=== PATIENT | female | born 1950 | race African-American/Black ===

== ENCOUNTER 2021-10-04 19:16 | Emergency (ER) | payer BC ==
[~2021-10-04] VITALS: Ht 162.6 cm; Wt 51.7 kg
[2021-10-04 19:22] VITALS: BP 153/74
[2021-10-04 20:26] LABS: BASOPHILS % (AUTO) 0.8 % (0.0-2.0); EOSINOPHILS % (AUTO) 0.1 % (0.0-4.0); LYMPHOCYTES # (AUTO) 0.4 K/uL (2.5-16.5); LYMPHOCYTES % (AUTO) 12.3 % (20.5-51.1); MEAN CORPUSCULAR HEMOGLOBIN 27 pg (27-31); MEAN CORPUSCULAR HGB CONC 33 g/dL (33-37); MONOCYTES # (AUTO) 0.2 K/uL (0.8-1.0); MONOCYTES % (AUTO) 6.1 % (1.7-9.3); NEUTROPHILS # (AUTO) 2.7 K/uL (1.8-7.7); NEUTROPHILS % (AUTO) 80.7 % (42.2-75.2); PLATELET COUNT (AUTO) 187 K/uL (140-450); RED BLOOD CELL COUNT(AUTO) 4.44 MIL/uL (4.20-5.40); RED CELL DISTRIBUTION WIDTH 17.2 % (11.6-13.7); WHITE BLOOD COUNT (AUTO) 3.4 K/uL (4.8-10.8)
[2021-10-04 20:48] LABS: ALBUMIN 4.3 g/dL (3.4-5.0); ANION GAP 15.1 (8-16); CARBON DIOXIDE 27.5 mmol/L (21-32); CREATININE 0.8 mg/dL (0.6-1.3); POTASSIUM 3.6 mmol/L (3.5-5.1); TOTAL BILIRUBIN 0.4 mg/dL (0.0-1.0)
[2021-10-04] MEDS: ONDANSETRON 4 MG/2 ML VIAL IVP ONE (21:07)
[2021-10-04] MEDS: NACL 0.9% 1,000 ML IV ONE (21:08)
[2021-10-04 22:01] LABS: APPEARANCE,URINE CLEAR (CLEAR); BILIRUBIN,URINE NEGATIVE (NEGATIVE); BLOOD, URINE TRACE-I (NEGATIVE); LEUKOCYTE ESTERASE ,URINE NEGATIVE (NEGATIVE); NITRITE, URINE NEGATIVE (NEGATIVE); PH,URINE 6.5 (5.0-9.0); UGLUCOSE 3+ (NEGATIVE)
[2021-10-04 22:02] LABS: COLOR,URINE STRAW (YELLOW)
[2021-10-04 22:13] LABS: RBC,URINE 0-5 /HPF (0-5)
[2021-10-04 22:14] LABS: URINE AMORPHOUS URATE 4+ /HPF (None Seen); WBC,URINE 0-5 /HPF (0-5)
[2021-10-04] MEDS ORDERED: PIOG45TA10 PO (22:56)
[2021-10-04] MEDS ORDERED: ATOR20TA PO (22:56)
[2021-10-04] MEDS ORDERED: GLIM2TAB PO (22:56)
[2021-10-04] MEDS ORDERED: LISI5TAB18 PO (22:56)
[2021-10-04] MEDS ORDERED: [UNRECOGNIZED DRUG - CODE] PO (22:56)
[2021-10-04] MEDS ORDERED: ALPR1TAB2 PO (22:56)
[2021-10-04] MEDS ORDERED: ASPI-1856 PO (22:56)
[2021-10-04] MEDS ORDERED: METF-1022 PO (22:56)
[2021-10-05 05:04] VITALS: BP 151/70
== END 2021-10-05 05:03 | disposition short-term general hospital (02) ==
LOC: MED 19:16
DX: R11.2 Nausea with vomiting, unspecified (principal); E87.1 Hypo-osmolality and hyponatremia; I21.4 Non-ST elevation (NSTEMI) myocardial infarction; Z20.822 Contact with and (suspected) exposure to COVID-19
CPT/HCPCS: 36415; 71045; 74177; 80053; 81001; 83690; 84484; 85025; 87086; 87426; 93005; 96361; 96374; 99285; J2405; J7030; Q9967

== ENCOUNTER 2022-08-18 23:10 | Emergency (ER) | payer BC ==
[~2022-08-18] VITALS: Ht 162.6 cm; Wt 54.4 kg
[~2022-08-18 23:10] MED LIST: ALPR1TAB2 PO; ASPI-1856 PO; ATOR20TA PO; GLIM2TAB PO; LISI5TAB18 PO; METF-1253 PO; PIOG45TA10 PO; [UNRECOGNIZED DRUG - CODE] PO
[2022-08-19 00:26] VITALS: BP 172/80
--- NOTE | 2022-08-19 00:45 | NUR ---
PT TAKEN TO BED 12
--- NOTE | 2022-08-19 01:00 | NUR ---
ER physician at bedside assessing patient. Patient lying in bed, Awake, chest rise and fall symmetrical, no s/s of distress, daughter at bedside.
--- NOTE | 2022-08-19 01:01 | NUR ---
Patient to CT
[2022-08-19] MEDS ORDERED: HYDROmorphone PFS 2 MG/ML SYR IVP ONE (01:15)
[2022-08-19] MEDS ORDERED: KETOROLAC 30 MG/ML VIAL IVP ONE (01:15)
--- NOTE | 2022-08-19 01:15 | NUR ---
Patient back from CT. Patient lying in bed, Awake, chest rise and fall symmetrical, no s/s of distress, daughter at bedside.
[2022-08-19 01:31] LABS: BASOPHILS % (AUTO) 0.1 % (0.0-2.0); EOSINOPHILS % (AUTO) 0.8 % (0.0-4.0); HEMATOCRIT 29.6 % (36-48); HEMOGLOBIN 10.1 g/dL (12.0-16.0); LYMPHOCYTES # (AUTO) 0.1 K/uL (2.5-16.5); LYMPHOCYTES % (AUTO) 6.6 % (20.5-51.1); MEAN CORPUSCULAR HEMOGLOBIN 30 pg (27-31); MEAN CORPUSCULAR HGB CONC 34 g/dL (33-37); MEAN CORPUSCULAR VOLUME 88.3 fL (80-94); MONOCYTES # (AUTO) 0.2 K/uL (0.8-1.0); MONOCYTES % (AUTO) 18.4 % (1.7-9.3); NEUTROPHILS # (AUTO) 0.9 K/uL (1.8-7.7); NEUTROPHILS % (AUTO) 74.1 % (42.2-75.2); PLATELET COUNT (AUTO) 129 K/uL (140-450); RED BLOOD CELL COUNT(AUTO) 3.35 MIL/uL (4.20-5.40); RED CELL DISTRIBUTION WIDTH 15.5 % (11.6-13.7)
[2022-08-19 01:34] LABS: WHITE BLOOD COUNT (AUTO) 1.2 K/uL (4.8-10.8)
[2022-08-19 01:50] LABS: ALBUMIN 3.2 g/dL (3.4-5.0); ANION GAP 10.8 (8-16); ASPARTATE AMINOTRANSFERASE 22 U/L (15-37); CARBON DIOXIDE 31.3 mmol/L (21-32); CHLORIDE 96 mmol/L (98-107); CREATININE 0.9 mg/dL (0.6-1.3); GFR ARICAN-AMERICAN 80 mL/min (>90); GLUCOSE 229 mg/dL (74-106); POTASSIUM 4.1 mmol/L (3.5-5.1); SODIUM SERUM 134 mmol/L (136-145); TOTAL BILIRUBIN 0.3 mg/dL (0.0-1.0); UREA NITROGEN, BLOOD 17 mg/dL (7-18)
--- NOTE | 2022-08-19 02:00 | NUR ---
Patient lying in bed, Awake, chest rise and fall symmetrical, no s/s of distress, daughter at bedside.
--- NOTE | 2022-08-19 03:00 | NUR ---
Patient lying in bed, Awake, chest rise and fall symmetrical, no s/s of distress, daughter at bedside.
--- NOTE | 2022-08-19 04:10 | NUR ---
Patient lying in bed, Awake, chest rise and fall symmetrical, no s/s of distress, daughter at bedside.
--- NOTE | 2022-08-19 05:05 | NUR ---
Patient lying in bed, Awake, chest rise and fall symmetrical, no s/s of distress, daughter at bedside.
--- NOTE | 2022-08-19 06:00 | NUR ---
Patient lying in bed, Awake, chest rise and fall symmetrical, no s/s of distress, daughter at bedside.
[2022-08-19 06:10] VITALS: BP 127/85
--- NOTE | 2022-08-19 06:26 | NUR ---
Patient discharged with v/s stable. Written and verbal after care instructions given and explained. Patient verbalized understanding. Ambulatory with steady gait. All questions addressed prior to discharge. Advised to follow up with PMD.
== END 2022-08-19 06:26 | disposition home or self-care (01) ==
LOC: MED 23:10
DX: M25.511 Pain in right shoulder (principal); I10 Essential (primary) hypertension; E11.9 Type 2 diabetes mellitus without complications; Z79.4 Long term (current) use of insulin; Z79.899 Other long term (current) drug therapy; Z98.890 Other specified postprocedural states
CPT/HCPCS: 36415; 70450; 71275; 72125; 80053; 82948; 84484; 85025; 93005; 96374; 96375; 99285; J1170; J1885; Q9967

== ENCOUNTER 2022-09-27 10:13 | Inpatient (IN) | payer BC ==
[~2022-09-27] VITALS: Ht 167.6 cm; Wt 65.1 kg
--- NOTE | 2022-09-27 | NUR ---
PT CALLED DAUGHTER TO TELL NURSE SHE NEED TO USE THE BED GRANT . DAUGHTER SAID PT NEEDED TO BE CLEANED UP. WHEN I PREPARED TO CLEAN THE PATIENT SHE SAID NO GRANT. I REALIZED SHE NEEDED THE BEDPAN. SHE VOIDED 600 CC CLEAR YELLOW URINE
--- NOTE | 2022-09-27 10:14 | NUR ---
pt placed in ed 09 by amr
[2022-09-27 10:16] VITALS: BP 131/57
--- NOTE | 2022-09-27 10:30 | NUR ---
RECEIVED PT FROM [facility] C/C SOB 75% RA. ARRIVES ON 4L NC SATURATION 94%. PT SPEAKING IN FULL SENTENCES, HX OF LUNG CA LAST CHEMO 2 DAYS AGO. PT STATES WORSENING SOB WITH MOVEMENT AND AMBULATION. NSR ON MONITOR.
--- NOTE | 2022-09-27 10:45 | NUR ---
pt bib als run from home c/o sob x2 days. pt gcs 15. 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 pt on 4l saturation 94%. hx of lung ca last chemo 2 days ago.
[2022-09-27 11:00] LABS: BASOPHILS % (AUTO) 0.2 % (0.0-2.0); HEMATOCRIT 22.9 % (36-48); HEMOGLOBIN 7.6 g/dL (12.0-16.0); LYMPHOCYTES # (AUTO) 0.2 K/uL (2.5-16.5); LYMPHOCYTES % (AUTO) 2.4 % (20.5-51.1); MEAN CORPUSCULAR HEMOGLOBIN 31 pg (27-31); MEAN CORPUSCULAR HGB CONC 33 g/dL (33-37); MEAN CORPUSCULAR VOLUME 92.7 fL (80-94); MONOCYTES # (AUTO) 0.3 K/uL (0.8-1.0); MONOCYTES % (AUTO) 3.6 % (1.7-9.3); NEUTROPHILS # (AUTO) 6.7 K/uL (1.8-7.7); NEUTROPHILS % (AUTO) 93.8 % (42.2-75.2); PLATELET COUNT (AUTO) 327 K/uL (140-450); RED BLOOD CELL COUNT(AUTO) 2.47 MIL/uL (4.20-5.40); RED CELL DISTRIBUTION WIDTH 19.3 % (11.6-13.7); WHITE BLOOD COUNT (AUTO) 7.2 K/uL (4.8-10.8)
[2022-09-27 11:42] LABS: ALBUMIN 2.3 g/dL (3.4-5.0); ANION GAP 11.7 (8-16); ASPARTATE AMINOTRANSFERASE 20 U/L (15-37); CARBON DIOXIDE 28.8 mmol/L (21-32); CHLORIDE 99 mmol/L (98-107); CREATININE 0.9 mg/dL (0.6-1.3); GFR ARICAN-AMERICAN 80 mL/min (>90); GLUCOSE 250 mg/dL (74-106); POTASSIUM 3.5 mmol/L (3.5-5.1); SODIUM SERUM 136 mmol/L (136-145); TOTAL BILIRUBIN 0.3 mg/dL (0.0-1.0); UREA NITROGEN, BLOOD 26 mg/dL (7-18)
[2022-09-27] MEDS ORDERED: LEVOFLOXACIN 500 MG/D5W PREMIX 100 ML IV ONE (12:20)
--- NOTE | 2022-09-27 12:42 | NUR ---
PT BROUGHT BACK FROM CT VIA [facility]
[2022-09-27] MEDS ORDERED: FLUO-402 PO (13:16)
[2022-09-27] MEDS ORDERED: PRIM50TA21 PO (13:16)
[2022-09-27] MEDS ORDERED: METF-352 PO (13:16)
[2022-09-27] MEDS ORDERED: AMLO-3 PO (13:16)
[2022-09-27] MEDS ORDERED: CLOP75TA55 PO (13:16)
[2022-09-27] MEDS ORDERED: [UNRECOGNIZED DRUG - CODE] PO (13:16)
[2022-09-27] MEDS ORDERED: HYDR2TAB46 PO (13:16)
[2022-09-27] MEDS ORDERED: TRAZ-466 PO (13:16)
[2022-09-27] MEDS ORDERED: METFORMIN HCL PO SCH (13:30)
[2022-09-27] MEDS ORDERED: traZODone 50 MG TAB PO PRN (13:30)
[2022-09-27] MEDS: amLODIPine 5 MG TAB PO SCH (13:30)
[2022-09-27] MEDS ORDERED: CLOPIDOGREL 75 MG TAB PO SCH (13:30)
[2022-09-27] MEDS ORDERED: ALPRAZolam 0.5 MG TAB PO PRN (13:30)
[2022-09-27] MEDS ORDERED: DOCUSATE SOD/SENNA 50/8.6 MG 1 TAB PO PRN (13:30)
[2022-09-27] MEDS ORDERED: HYDROmorphone 2 MG TAB PO PRN (13:35)
[2022-09-27] MEDS ORDERED: ONDANSETRON 4 MG/2 ML VIAL IVP PRN (13:40)
[2022-09-27] MEDS ORDERED: POTASSIUM CHLORIDE 10 MEQ TABER PO PRN (13:40)
[2022-09-27] MEDS ORDERED: MECLIZINE 25 MG TAB PO PRN (13:40)
[2022-09-27] MEDS ORDERED: DEXTROSE 50% 50 ML SYR IVP PRN (13:40)
[2022-09-27] MEDS: NACL 0.9% 1,000 ML IV SCH (13:51)
[2022-09-27 14:50] LABS: PROTHROMBIN TIME 10.9 secs (10.8-13.4)
[2022-09-27 14:51] LABS: MAGNESIUM 1.5 mg/dL (1.8-2.4); PHOSPHORUS 3.7 mg/dL (2.5-4.9)
--- NOTE | 2022-09-27 15:28 | NUR ---
David smart in EDM - 09/27/22 at 1534 by [id number] PT PLACED ON NONREBREATHER 15L D/T DESATURATION 84% ON 5l NC. PT SPEAKING IN FULL SENTENCES.
[2022-09-27 15:34] LABS: FREE T4 (FREE THYROXINE) 0.99 ng/dL (0.76-1.46); THYROID STIMULATING HORMONE 1.37 uIU/mL (0.34-3.74)
--- NOTE | 2022-09-27 15:34 | NUR ---
PT PLACED ON NONREBREATHER 15L D/T DESATURATION 84% ON 5l NC. PT SPEAKING IN FULL SENTENCES
[2022-09-27 16:30] VITALS: BP 139/69
--- NOTE | 2022-09-27 16:30 | NUR ---
ADMISSION FROM E.D. TO ICU-2 1630 HRS: PATIENT CAME BY [facility] WITH NURSE NUBIA, DIAGNOSIS OF PNEUMONIA, HAD CHEMO 2 DAYS AGO FOR LUNG CA, NO METASTASIS. INOPERABLE CA. DIAGNOSED 6 MONTHS AGO, HISTORY OF DM. 100% NON-REBREATHING MASK 15 L/MINUTE. BOTH LUNGS SOUNDS DIMINISHED, PRODUCTIVE COUGH. PT. HAS FIRST DEGREE HEART BLOCK. ON CCHO DIET, AC/HS ACCUCHECK, WITH PRN IN ADDITION TO ORAL HYPOGLYCEMIC PILLS. ARRIVED WITH . PT. IS CANTONESE-OPENING, WITH SOME BITS OF MEXICAN. SKIN IS INTACT. RT. AC PIV. GAUGE 20, LEFT CHEST PORTACATH, HAS BEEN ACCESSED WITH NEEDLE. SpO2 97% ON ARRIVAL AND BP STABLE, THEN PT.STARTED COUGHING, BP INCREASED, DESATURATING, WAS NOTED BY DR. LIM AROUND 1815 HRS. WAS COMPLAINING OF PAIN, GIVEN DILAUDID P.O. Addendum: 09/27/22 at 2000 by Agency Nurse EDDI Quintana RN PORTACATHETERE IS AT THE RIGHT SIDE, PIV IS LEFT ANTECUBITAL.
[2022-09-27] MEDS: BLOOD GLUCOSE MONITORING 1 DEV DEV FS SCH ×2 (16:36→21:20)
--- NOTE | 2022-09-27 16:37 | NUR ---
PT TAKEN TO ICU 2 FOR ADMISSION REPORT GIVEN TO XIOMARA MONTAGUE BESIDE REPORT. STABLE ON TX
[2022-09-27 17:00] VITALS: BP 147/78
[2022-09-27] MEDS: metFORMIN 500 MG TAB PO SCH (17:19)
[2022-09-27] MEDS: HYDROmorphone 2 MG TAB PO PRN (17:42)
[2022-09-27 18:00] VITALS: BP 181/92
[2022-09-27] MEDS: GLIMEPIRIDE 2 MG TAB PO SCH (18:13)
[2022-09-27] MEDS ORDERED: METOPROLOL 25 MG TAB PO SCH (18:15)
[2022-09-27] MEDS ORDERED: hydrALAZINE 20 MG/ML VIAL IVP PRN (18:30)
[2022-09-27] MEDS: ACETAMINOPHEN 325 MG TAB PO PRN (19:40)
--- NOTE | 2022-09-27 19:43 | NUR ---
rreceived report from gail. pt is wrapped cocoon style with lots ob blankets. at the bedside. took a while to get him to understand he needed ti leave and he could retun at 200 after the shift exchange. on asssessing pt found to have a temp of 101 axillary. blankets and jacket removed and tylenol 650mg given. spoke with Ceci the pt'ds daughter and she exp;ained to the pt wht her covers had to be removed. she ask if the pt could have food. she was assured the pt would eat,. obtained a sandwichm ouddding and juice for the patient and she is feeding herself.
[2022-09-27 20:00] VITALS: BP 148/70
[2022-09-27] MEDS: CLINDAMYCIN 600MG/D5W PM 50 ML IV SCH (21:00)
[2022-09-27] MEDS ORDERED: LOVENOX 1MG/KG Q12H SUBQ SCH (21:00)
[2022-09-27] MEDS: lisinopriL 10 MG TAB PO SCH (21:00)
[2022-09-27] MEDS ORDERED: NON-FORMULARY ITEM (Metformin HCl (Metformin Hcl) 1 TAB) PO SCH (21:00)
--- NOTE | 2022-09-27 21:00 | NUR ---
MANESIUM IS 3.4 BUT THE MAGNESIUM WASN'T REPLACEED TODAY. MAGNESIUM 2000MG WAS GIVEN IVPB.
[2022-09-27] MEDS: INSULIN LISPRO SLIDING SCALE 100 UNITS/ML VIAL SUBQ PRN (21:21)
[2022-09-27] MEDS: DOCUSATE SODIUM 100 MG GELCAP PO SCH (21:29)
[2022-09-27] MEDS: ENOXAPARIN 60 MG/0.6 ML SYR SUBQ SCH (21:30)
[2022-09-27 22:00] VITALS: BP 145/60
--- NOTE | 2022-09-27 22:00 | NUR ---
THE LAB CALLED TO INQUIRE ABOUT THE NOVEL WILDER VIRUS. IT WA ORDERED IN ED A BEORE PT WAS TRANSFERRED TO ICU
[2022-09-27] MEDS: MAG SULF 2000 MG/WATER PREMIX 50 ML IV PRN (22:15)
[2022-09-28] VITALS (7 sets, daily range): BP systolic 104–160; BP diastolic 52–79
--- NOTE | 2022-09-28 | NUR ---
PT MOVED TO ROOM 7 FOR R/O. COVID 19. S/P LAB CALLING ASKING IF THE PT'S NOVEL WILDER VIRUS TEST HAD BEEN DONE. I SWABBED THE PATIENT AND TOOK IT TO THE LAB.
[2022-09-28] MEDS: CLINDAMYCIN 600MG/D5W PM 50 ML IV SCH ×3 (05:00→20:21)
[2022-09-28 05:53] LABS: BASOPHILS % (AUTO) 0.2 % (0.0-2.0); EOSINOPHILS % (AUTO) 0.1 % (0.0-4.0); HEMATOCRIT 22.4 % (36-48); HEMOGLOBIN 7.5 g/dL (12.0-16.0); LYMPHOCYTES # (AUTO) 0.2 K/uL (2.5-16.5); LYMPHOCYTES % (AUTO) 3.1 % (20.5-51.1); MEAN CORPUSCULAR HEMOGLOBIN 31 pg (27-31); MEAN CORPUSCULAR HGB CONC 33 g/dL (33-37); MEAN CORPUSCULAR VOLUME 91.7 fL (80-94); MONOCYTES # (AUTO) 0.3 K/uL (0.8-1.0); MONOCYTES % (AUTO) 4.5 % (1.7-9.3); NEUTROPHILS # (AUTO) 5.8 K/uL (1.8-7.7); NEUTROPHILS % (AUTO) 92.1 % (42.2-75.2); PLATELET COUNT (AUTO) 296 K/uL (140-450); RED BLOOD CELL COUNT(AUTO) 2.44 MIL/uL (4.20-5.40); RED CELL DISTRIBUTION WIDTH 19.5 % (11.6-13.7); WHITE BLOOD COUNT (AUTO) 6.3 K/uL (4.8-10.8)
[2022-09-28] MEDS: ECOTRIN 81 MG TABEC PO SCH (06:09)
--- NOTE | 2022-09-28 06:14 | NUR ---
PT ASSISTED IN HE AM CARE. HER IV ACCESS IS IN HER LAC; SHE CAN'T REMEMBER TO KEEP HER ARM STRAIGHT AND THE PUMP C CONTINUES TO ALARM.
[2022-09-28 06:20] LABS: ANION GAP 8.5 (8-16); CARBON DIOXIDE 30.6 mmol/L (21-32); CREATININE 0.6 mg/dL (0.6-1.3); POTASSIUM 4.1 mmol/L (3.5-5.1)
[2022-09-28 06:32] LABS: MAGNESIUM 1.7 mg/dL (1.8-2.4); PHOSPHORUS 3.2 mg/dL (2.5-4.9)
[2022-09-28] MEDS: BLOOD GLUCOSE MONITORING 1 DEV DEV FS SCH ×4 (07:30→20:42)
--- NOTE | 2022-09-28 07:30 | NUR ---
RECEIVED REPORT FROM VAULT MECHANIC. PT AWAKE IN BED, AOX4, NO C/O PAIN, NO SOB ON OXYMIZER 13L/MIN.
--- NOTE | 2022-09-28 08:30 | NUR ---
DUE MEDS GIVEN. TOLERATED WELL
[2022-09-28] MEDS: GLIMEPIRIDE 2 MG TAB PO SCH ×2 (08:50→17:26)
[2022-09-28] MEDS: LEVOFLOXACIN 500 MG/D5W PREMIX 100 ML IV SCH (08:50)
[2022-09-28] MEDS: metFORMIN 500 MG TAB PO SCH ×2 (08:50→17:26)
[2022-09-28] MEDS: PANTOPRAZOLE 40 MG INJ VIAL IVP SCH (08:50)
[2022-09-28] MEDS: amLODIPine 5 MG TAB PO SCH (08:51)
[2022-09-28] MEDS: ATORVASTATIN 20 MG TAB PO SCH (08:51)
[2022-09-28] MEDS: FLUoxetine 20 MG CAP PO SCH (08:51)
[2022-09-28] MEDS: lisinopriL 10 MG TAB PO SCH ×2 (08:51→20:22)
[2022-09-28] MEDS: ENOXAPARIN 60 MG/0.6 ML SYR SUBQ SCH ×2 (08:51→20:23)
[2022-09-28] MEDS: DOCUSATE SODIUM 100 MG GELCAP PO SCH ×2 (08:51→20:21)
[2022-09-28] MEDS: PRIMIDONE 50 MG TAB PO SCH (08:51)
[2022-09-28] MEDS: NACL 0.9% 1,000 ML IV SCH (08:52)
[2022-09-28] MEDS ORDERED: lisinopriL 5 MG TAB PO SCH (09:00)
--- NOTE | 2022-09-28 10:30 | NUR ---
ASSISTED TO COMMODE. WITH BM X1
--- NOTE | 2022-09-28 11:31 | NUR ---
PATIENT HAS BEEN SCREENED AND CATEGORIZED MODERATE NUTRITION RISK. PATIENT WILL BE SEEN WITHIN 3-5 DAYS OF ADMISSION. 09/30/2212/18/[address] Addendum: 09/30/22 at [address] FNS CONSULT HAS BEEN RECEIVED FOR TUBE FEEDING. PATIENT HAS BEEN RE-SCREENED HIGH RISK AND WILL BE SEEN WITHIN 1-2 DAYS OF RECEIVING THE FNS CONSULT. MICHAEL HOW[address] RD
[2022-09-28] MEDS: INSULIN LISPRO SLIDING SCALE 100 UNITS/ML VIAL SUBQ PRN ×2 (11:53→20:41)
--- NOTE | 2022-09-28 14:07 | NUR ---
PT IN BED, NO RESPIRATORY DISTRESS. AT BEDSIDE
--- NOTE | 2022-09-28 16:13 | NUR ---
DC PLANNING SW OUTREACHED TO PT DAUGHTER TO GATHER COLLATERAL INFORMATION. SPOKE WITH KASSI, . KASSI REPORTS PT RESIDES IN A SINGLE STORY HOME WITH HER AT THE ADDRESS LISTED ON FILE. PT IDENTIFIED HERSELF [phone] PT'S EMERGENCY CONTACT. KASSI DENIES KNOWLEDGE OF AD IN PLACE AND REPORTS FATHER IS MDM IN THE EVENT PT CAN NOT MAKE DECISIONS FOR HERSELF. PT IS REPORTED TO MEET WITH PCP REGULARLY, LAST VISIT 1-2 WEEKS AGO. PT IS REPORTED TO MEET WITH ONCOLOGIST DR MATIAS GOMEZ 1X MONTHLY, LAST VISIT 1 WEEK AGO. KASSI REPORTS PT RECEIVES CHEMO WITH [facility] EVER 28 DAYS. KASSI REPORTS PT IS REPORTED TO BE MEDICATION COMPLIANT AND DENIES BARRIERS IN ACCESS TO NEEDED MEDICATIONS. PT RECEIVES MEDICATION FROM [facility] ON [address] IN [place] WHEN NEEDED. KASSI REPORTS BEING AMBULATORY WITH [facility], PT ABLE TO COMPLETE ADL'S INDEPENDENTLY. PT IS REPORTED TO HAVE DIABETES THAT IS WELL MANAGED. KASSI DENIES PT HAS HX OF , SNF, HOSPICE CARE. KASSI REPORTS DC PLAN IS FOR PT TO RETURN HOME W/ PROVIDING TRANSPORTATION, WHEN MEDICALLY STABLE. KASSI REPORTS SPEAKING WITH ABOUT HOME O2. ADVISED PT THAT ORDER MUST BE PUT IN BY PHYSICIAN AND ONCE IN, CM WILL WORK ON OBTAINING, ENDORSED TO CM. Addendum: 09/28/22 at 1614 by Josi GIBSON Amended: Links added.
[2022-09-28] MEDS: HYDROmorphone 2 MG TAB PO PRN (17:00)
--- NOTE | 2022-09-28 17:00 | NUR ---
WITH EPISODE OF DESATURATING SPO2 80% ON 10L AT REST. RT NOTIFIED, INCREASED O2 TO 13L, SATURATING 90%
--- NOTE | 2022-09-28 19:10 | NUR ---
Received report from Aleksandr, Charge AM PLASTER MACHINE OPERATOR, Questions answered. Initial assessment will be done in Flowsheet. (Please see Flowsheet for complete Physical Assessment)
[2022-09-28] MEDS: MAG SULF 2000 MG/WATER PREMIX 50 ML IV PRN (19:20)
--- NOTE | 2022-09-28 21:00 | NUR ---
Due medications given, Tolerated well. Will Continue to Monitor for possible adverse reactions. BS= 269 mg/dl, covered with Humalog Insulin 6"units" SQ as per Sliding Scale protocol ordered.
[2022-09-29] VITALS (14 sets, daily range): BP systolic 83–198; BP diastolic 50–105
--- NOTE | 2022-09-29 00:22 | NUR ---
Patient ask for Bedpan to do #1, also requested for pain medication. Gave Woodridge 7.5mg 1 tab, complain of Headache, Aching, non-radiating. PS= 6/10
[2022-09-29] MEDS: HYDROcodone/APAP 7.5/325 MG 1 TAB PO PRN ×2 (00:23→12:14)
--- NOTE | 2022-09-29 01:50 | NUR ---
Patient complain of Nausea, given Zofran 4mg IVP. will monitor for effectivity.
--- NOTE | 2022-09-29 04:30 | NUR ---
Patient sleeping calmly, No pain or discomfort noted. No Cardio-respiratory distress noted at this time. Turn & repositions self.
[2022-09-29] MEDS: CLINDAMYCIN 600MG/D5W PM 50 ML IV SCH ×3 (05:31→21:11)
[2022-09-29 05:53] LABS: BASOPHILS % (AUTO) 0.1 % (0.0-2.0); HEMATOCRIT 21.8 % (36-48); HEMOGLOBIN 7.3 g/dL (12.0-16.0); LYMPHOCYTES # (AUTO) 0.1 K/uL (2.5-16.5); MEAN CORPUSCULAR HEMOGLOBIN 31 pg (27-31); MEAN CORPUSCULAR HGB CONC 34 g/dL (33-37); MEAN CORPUSCULAR VOLUME 91.6 fL (80-94); MONOCYTES # (AUTO) 0.2 K/uL (0.8-1.0); MONOCYTES % (AUTO) 2.1 % (1.7-9.3); NEUTROPHILS # (AUTO) 9.2 K/uL (1.8-7.7); NEUTROPHILS % (AUTO) 96.8 % (42.2-75.2); PLATELET COUNT (AUTO) 310 K/uL (140-450); RED BLOOD CELL COUNT(AUTO) 2.38 MIL/uL (4.20-5.40); RED CELL DISTRIBUTION WIDTH 19.1 % (11.6-13.7); WHITE BLOOD COUNT (AUTO) 9.5 K/uL (4.8-10.8)
--- NOTE | 2022-09-29 06:19 | NUR ---
Patient still sleeping, Bed in Low position, Head of Bed in 30 degrees angle, Breaks on, weighed patient per Bed Scale. VS Stable, on 40L FiO2= 90% Hi-flow.
[2022-09-29 07:23] LABS: ANION GAP 14.6 (8-16); CARBON DIOXIDE 24.9 mmol/L (21-32); CREATININE 0.6 mg/dL (0.6-1.3); POTASSIUM 3.5 mmol/L (3.5-5.1)
--- NOTE | 2022-09-29 07:25 | NUR ---
Report given to JAKOB Swanson LOAN SERVICING OFFICER, All questions answered. VS Stable, bed in low position. IV patent.
[2022-09-29 07:26] LABS: MAGNESIUM 1.6 mg/dL (1.8-2.4); PHOSPHORUS 2.5 mg/dL (2.5-4.9)
--- NOTE | 2022-09-29 07:27 | NUR ---
SBAR REPORT RECEIVED FROM MATTY MONTAGUE, ALL CARES ASSUMED. PT ON HIGH FLOW NC 40L 90%. PT RESTING IN BED WITH EYES CLOSED. BED IN LOW AND LOCKED POSITION, CALL LIGHT WITHIN REACH.
[2022-09-29] MEDS: BLOOD GLUCOSE MONITORING 1 DEV DEV FS SCH ×4 (07:42→21:06)
[2022-09-29] MEDS: ECOTRIN 81 MG TABEC PO SCH (07:45)
[2022-09-29] MEDS: NACL 0.9% 1,000 ML IV SCH ×3 (07:45→20:00)
[2022-09-29] MEDS: INSULIN LISPRO SLIDING SCALE 100 UNITS/ML VIAL SUBQ PRN ×4 (07:53→21:09)
[2022-09-29] MEDS: metFORMIN 500 MG TAB PO SCH ×2 (08:00→17:00)
[2022-09-29] MEDS: amLODIPine 5 MG TAB PO SCH (08:14)
[2022-09-29] MEDS: ATORVASTATIN 20 MG TAB PO SCH (08:14)
[2022-09-29] MEDS: DOCUSATE SODIUM 100 MG GELCAP PO SCH ×2 (08:14→21:12)
[2022-09-29] MEDS: lisinopriL 10 MG TAB PO SCH ×3 (08:15→21:14)
[2022-09-29] MEDS: ENOXAPARIN 60 MG/0.6 ML SYR SUBQ SCH ×2 (08:15→21:17)
[2022-09-29] MEDS: PANTOPRAZOLE 40 MG INJ VIAL IVP SCH (08:15)
[2022-09-29] MEDS: LEVOFLOXACIN 500 MG/D5W PREMIX 100 ML IV SCH (08:15)
[2022-09-29] MEDS: GLIMEPIRIDE 2 MG TAB PO SCH ×2 (08:18→17:00)
[2022-09-29] MEDS: PRIMIDONE 50 MG TAB PO SCH (08:18)
[2022-09-29] MEDS: FLUoxetine 20 MG CAP PO SCH (08:18)
--- NOTE | 2022-09-29 14:41 | NUR ---
PT DESATTED TO 84%, RT CALLED TO ASSESS. RT INCREASED HIGH FLOW NC TO 100% FiO2. O2 SATURATION TEMPORARILY INCREASED TO 92% AND DECREASED TO 85%. PAGED DR PAREDES FOR CHANGE IN CONDITION AND NEW ORDERS. AWAITING CALL BACK AT THIS TIME.
--- NOTE | 2022-09-29 15:07 | NUR ---
DR. SERRANO CALLED BACK AND GAVE TELEPHONE ORDER FOR ABG. ORDER ENTERED. RT AT BEDSIDE FOR ABG.
--- NOTE | 2022-09-29 15:08 | NUR ---
GOT ABG ORDER TO DRAW ABG ON PT.
--- NOTE | 2022-09-29 15:20 | NUR ---
DR. SERRANO CALLED BACK TO GET ABG RESULTS, RELAYED TO DR. SERRANO THAT RT WAS STILL AT BEDSIDE ATTEMPTING TO DRAW ABG. DR. SERRANO TOLD THIS NURSE TO CALL THE ER DOCTOR TO HAVE THEM INTUBATE THE PT. STILL AWAITING ABG RESULTS. ER CALLED AND REQUESTED ER PHYSICIAN TO INTUBATE.
--- NOTE | 2022-09-29 15:48 | NUR ---
FAMILY DISCUSSED INTUBATION WITH PT. PT AGREES TO INTUBATION. ER PHYSICIAN CALLED TO INTUBATE.
[2022-09-29] MEDS ORDERED: PROPOFOL 1000 MG/100 ML PREMIX 100 ML IV ONE (15:57)
--- NOTE | 2022-09-29 16:15 | NUR ---
PT GIVEN 2Omg ETOMIDATE AND 100mg ROCURONIUM. PT INTUBATED AT 1605 WITH 7.5CM ETT, 23CM AT THE LIP LINE. STAT CHEST XRAY ORDERED TO CONFIRM PLACEMENT. OG TUBE PLACED, AUSCULTATED FOR PLACEMENT, WILL ALSO VERIFY PLACEMENT VIA CHEST XRAY. DR. SERRANO CALLED, UPDATE GIVEN, DISCUSSED PLAN OF CARE. TELEPHONE ORDER RECEIVED FOR REPEAT ABG AND CHEST XRAY TOMORROW AT 0700.
--- NOTE | 2022-09-29 16:16 | NUR ---
PT WAS INTUBATED BY DR. BANUELOS @ 1605 WITH 7.5 EET @23CM AT THE TEETH. COLOR CHANGE FROM CO2 DETECTOR AND BILATERAL BREATHE SOUNDS WERE HEARD. STAT XRAY WAS ORDER TO CONFIRM PLACEMENT. PT AIRWAY PATENT AND SECURE, AMBU BAG IS AT BEDSIDE. PT WAS PLACED ON AC/PRVC 450 RR18 +8 100%. VENT PLUGGED INTO RED OUTLET. ALARMS ARE SETS AND AUDIBLE. PT TOLERATING VENT VENTS WELL. DR SERRANO WAS CALLED AND UPDATED. SAID HE ORDERS A FOLLOW UP ABG TOMORROW @0700. PT SATING 92% HR 102. WILL CONTINUE TO MONITOR.
[2022-09-29] MEDS ORDERED: NACL 0.9% 1,000 ML IV ONE (18:50)
--- NOTE | 2022-09-29 19:29 | NUR ---
PAGED EXCHANGER FOR PT's QUILT MAKER COLOR GRINDER FOR POST INTUBATION ABG DUE TO NO ABG AFTER INTUBATION.
[2022-09-29] MEDS: ALBUTEROL SULFATE/IPRATROPIU 3 ML SOL IH SCH (19:30)
--- NOTE | 2022-09-29 19:30 | NUR ---
RECEIVED REPORT FROM AM SHIFT. PATIENT WAS SEEN AND ASSESSED. PATIENT IS INTUBATED WITH ETT SIZE 7.5 AND SECURED WITH A BITING BLOCK ANCHOR-FAST 23cm @ TEETH. PATIENT IS ON VENTILATOR SUPPORT. VENTILATOR PLUGGED IN RED OUTLET. VENTILATOR ALARMS SET APPROPRIATELY AND AUDIBLE TO ENVIRONMENT. AMBU BAG AT BEDSIDE. HEAD OF BED GREATER THAN 30 DEGREES. NOTICED ADEQUATE BILATERAL CHEST RISE AND FALL. VENT SETTINGS: AC/PRVC RR 18, TARGETED Vt 450, PEEP 8, FiO2 100% WITH SPO2 OF 90-92%. BILATERAL BREATH SOUNDS ON AUSCULTATION; UPPER LOBES: COARSE CRACKLES LOWER LOBES: COARSE CRACKLES. SUCTION: SMALL AMOUNT OF WHITE THIN/THICK SECRETIONS FROM ETT AND SMALL WHITE THIN ORALLY. SCHEDULE TX GIVEN ORDERED AND PT TOLERATED WELL WITH NO ADVERSE REACTION WILL CONTINUE TO MONITOR PATIENT.
--- NOTE | 2022-09-29 19:34 | NUR ---
DR. PAREDES CALLED BACK. DOCTOR WAS INFORMED THERE IS NO POST INTUBATION ABG. ABG ORDER GIVEN BY DR. PAREDES.
--- NOTE | 2022-09-29 19:40 | NUR ---
PT LOOK AGITATED/RESTLESS IN BED. RN WAS NOTIFIED.
[2022-09-29] MEDS ORDERED: MORPHINE SULFATE 10 MG/ML VIAL ONE (19:48)
--- NOTE | 2022-09-29 19:50 | NUR ---
SBAR REPORT GIVEN TO KYA RN, ALL CARES ENDORSED.
[2022-09-29] MEDS: MORPHINE SULFATE 50 MG in NACL 0.9% 45 ML IV PRN (20:00)
--- NOTE | 2022-09-29 20:00 | NUR ---
pATIENT WAS STARTED ON lEVOPHED DRIP AT 4MCG AND AT PRESENT bp STABLE.rEMAINS ON RESTRAINTS TO PREVENT FROM PULLING OUT VITAL LINES.vENT SETTING as follows AC/PRVC 18 TV 450 Fi02 100% peep 12,minimum secretions.Withepisode of agitation and restlessness as prop[ofol drip is titrated to effectWill continue to proceed with current plan of care.
--- NOTE | 2022-09-29 20:00 | NUR ---
rECEIVED PATIENT SEDATED ON PROPOFOL.rEMAINS ON VENTILATOR SAME STTING AND gLUCERNA TUBE FEEDING.rESTRAINTS STILL IN PLACE TO PREVENT FROM PULLING OUT VITAL LINES.vITALS STABLE.wILL PROCEED WITH CURRENT PLAN OF CARE.
--- NOTE | 2022-09-29 21:10 | NUR ---
PAGED PT's PULMO ARTIFICIAL PLASTIC EYE MAKER FOR CRITICAL ABG RESULTS.
[2022-09-29] MEDS: PROPOFOL 1000 MG/100 ML PREMIX 100 ML IV PRN (21:22)
--- NOTE | 2022-09-29 21:25 | NUR ---
Dr. PAREDES CALLED BACK. CRITICAL ABG RESULTS WERE REPORTED. READ BACK CONFIRMED. PER DR. PAREDES INCREASE PEEP TO 12 cmH20 AND PEEP CAN BE TITRATED UP TO 16 cmH20 IF PT DESATURATE.
--- NOTE | 2022-09-29 21:27 | NUR ---
INCREASED PEEP TO 12 cmH20. PT RESTLESS AND RN WAS NOTIFIED.
[2022-09-30] VITALS (32 sets, daily range): BP systolic 92–130; BP diastolic 46–89
[2022-09-30] MEDS: ALBUTEROL SULFATE/IPRATROPIU 3 ML SOL IH SCH ×4 (00:36→19:46)
[2022-09-30] MEDS: PROPOFOL 1000 MG/100 ML PREMIX 100 ML IV PRN ×7 (01:04→21:45)
[2022-09-30] MEDS: CLINDAMYCIN 600MG/D5W PM 50 ML IV SCH ×3 (04:12→20:53)
[2022-09-30] MEDS: ECOTRIN 81 MG TABEC PO SCH (05:41)
[2022-09-30 05:57] LABS: BASOPHILS % (AUTO) 0.1 % (0.0-2.0); EOSINOPHILS % (AUTO) 0.6 % (0.0-4.0); LYMPHOCYTES # (AUTO) 0.2 K/uL (2.5-16.5); LYMPHOCYTES % (AUTO) 2.1 % (20.5-51.1); MEAN CORPUSCULAR HEMOGLOBIN 31 pg (27-31); MEAN CORPUSCULAR HGB CONC 33 g/dL (33-37); MEAN CORPUSCULAR VOLUME 91.7 fL (80-94); MONOCYTES # (AUTO) 0.2 K/uL (0.8-1.0); MONOCYTES % (AUTO) 2.3 % (1.7-9.3); NEUTROPHILS # (AUTO) 7.1 K/uL (1.8-7.7); NEUTROPHILS % (AUTO) 94.9 % (42.2-75.2); PLATELET COUNT (AUTO) 328 K/uL (140-450); RED BLOOD CELL COUNT(AUTO) 2.18 MIL/uL (4.20-5.40); RED CELL DISTRIBUTION WIDTH 19.2 % (11.6-13.7); WHITE BLOOD COUNT (AUTO) 7.5 K/uL (4.8-10.8)
[2022-09-30 06:04] LABS: HEMOGLOBIN 6.7 g/dL (12.0-16.0)
[2022-09-30] MEDS: NACL 0.9% 1,000 ML IV SCH (06:26)
[2022-09-30 06:29] LABS: ANION GAP 13.6 (8-16); CARBON DIOXIDE 26.2 mmol/L (21-32); CREATININE 0.6 mg/dL (0.6-1.3); MAGNESIUM 1.5 mg/dL (1.8-2.4); PHOSPHORUS 2.2 mg/dL (2.5-4.9)
[2022-09-30 06:38] LABS: POTASSIUM 2.8 mmol/L (3.5-5.1)
[2022-09-30] MEDS ORDERED: KCL 20 MEQ/WATER INJ PREMIX 200 ML IV SCH (06:45)
[2022-09-30] MEDS ORDERED: POTASSIUM CHLORIDE 20% 40 MEQ/15 ML UDC GT PRN (06:45)
--- NOTE | 2022-09-30 07:00 | NUR ---
RECEIVED PT ON PRVC 450,18,+12,100%FIO2. VENT PLUGGED INTO RED OUTLET, WHEELS ARE LOCKED, AMBUBAG AT BEDSIDE, ALARMS ARE SET AND AUDIBLE. ADEQUATE CHEST RISE, SATURATION 98%. WILL CONTINUE TO MONITOR.
--- NOTE | 2022-09-30 07:00 | NUR ---
wILL ENDORSE PATIENT FOR CONTUINITY OF CARE TO INCOMING rn.REMAINS ON THE SAME VENT SETTING.lEVOPHED STILL AT 4MCG,MORPINE AT 2MG,PROPOFOL AT 80MCG, NS AT 50 ML/HOUR.
--- NOTE | 2022-09-30 07:15 | NUR ---
Received report on pt. Pt intubated and sedated with diprivan and morphine drips. Pt's at bedside. OGT in place, clamped. Blanc draining urine to gravity. Bilateral wrist restraints in place for safety. Per report, pt is to receive PICC line placement today and blood transfusion.
[2022-09-30] MEDS: PANTOPRAZOLE 40 MG INJ VIAL IVP SCH (08:09)
[2022-09-30] MEDS: LEVOFLOXACIN 500 MG/D5W PREMIX 100 ML IV SCH (08:10)
[2022-09-30] MEDS: ENOXAPARIN 60 MG/0.6 ML SYR SUBQ SCH ×2 (08:12→20:54)
[2022-09-30] MEDS: FLUoxetine 20 MG CAP PO SCH (08:13)
[2022-09-30] MEDS: GLIMEPIRIDE 2 MG TAB PO SCH ×2 (08:14→17:29)
[2022-09-30] MEDS: PRIMIDONE 50 MG TAB PO SCH (08:14)
[2022-09-30] MEDS: metFORMIN 500 MG TAB PO SCH ×2 (08:15→17:29)
[2022-09-30] MEDS: DOCUSATE SODIUM 100 MG GELCAP PO SCH ×2 (08:15→20:53)
[2022-09-30] MEDS: lisinopriL 10 MG TAB PO SCH ×2 (08:16→20:55)
[2022-09-30] MEDS: ATORVASTATIN 20 MG TAB PO SCH (08:16)
[2022-09-30] MEDS: amLODIPine 5 MG TAB PO SCH (08:17)
--- NOTE | 2022-09-30 08:29 | NUR ---
ABG DONE ON PT. DR. RANDOLPH NOTIFIED. ASKED TO TITRATE THE FIO2. KEEP SATURATION BETWEEN 92% TO 95%
--- NOTE | 2022-09-30 09:00 | NUR ---
Dr. Gudelia garcia on pt, states to hold off on feeding until tomorrow. Addendum: 09/30/22 at 1705 by EDDI RN CORRECTION: hold off until 24 hours after intubation
[2022-09-30] MEDS: SODIUM PHOS / POTASSIUM PHOS 1 PKT PDR PO SCH ×3 (10:38→17:29)
[2022-09-30] MEDS: MAGNESIUM OXIDE 400 MG TAB PO SCH (10:38)
[2022-09-30] MEDS: BLOOD GLUCOSE MONITORING 1 DEV DEV FS SCH ×2 (11:31→17:26)
[2022-09-30] MEDS: INSULIN LISPRO SLIDING SCALE 100 UNITS/ML VIAL SUBQ PRN ×2 (11:33→17:31)
--- NOTE | 2022-09-30 12:48 | NUR ---
PHYSICAL THERAPY NOTE: ATTEMPTED TO SEE PATIENT FOR PHYSICAL THERAPY TREATMENT HOWEVER PATIENT HAD CHANGE IN CONDITION AND IS NOW INTUBATED. NEW ORDER NEEDED WHEN PATIENT IS APPROPRIATE TO CONTINUE REHAB SERVICES. RN AWARE.
--- NOTE | 2022-09-30 14:30 | NUR ---
PICC line nurse at bedside for procedure.
--- NOTE | 2022-09-30 14:50 | NUR ---
Blood transfusion initiated with 1 unit PRBC. Verified with 2nd RN at bedside.
--- NOTE | 2022-09-30 15:05 | NUR ---
15 minutes after starting blood transfusion, no adverse reactions noted. Vitals recorded on blood transfusion record sheet.
[2022-09-30] MEDS: MORPHINE SULFATE 50 MG in NACL 0.9% 45 ML IV PRN (15:19)
--- NOTE | 2022-09-30 15:39 | NUR ---
09/30/22 RD INITIAL ASSESSMENT COMPLETED PLEASE REFER TO NUTRITION ASSESSMENT UNDER CARE ACTIVITY FOR ESTIMATED NUTRITIONAL NEEDS. 1. RECOMMEND GLUCERNA 1.2 @ 35ML/HR X 24 HRS WITH PROSOURCE BID, FWF 100 ML Q8H -RECOMMEND STARTING AT 20ML/HR AND INCREASING BY 10ML Q4H TOLERATED -WITH PROSOURCE BID AND PROPOFOL @ 33ML/HR, PT WILL RECEIVE 1999KCAL AND 80GM PROTEIN, MEETING 100% OF ESTIMATED NUTRITIONAL NEEDS 2. IF PT OFF PROPOFOL, RECOMMEND INCREASING GLUCERNA 1.2 TO 60ML/HR WITH FWF 50ML Q8H TOLERATED -WILL PROVIDE 1728KCAL AND 86GM PROTEIN, MEETING 100% OF ESTIMATED NUTRITIONAL NEEDS 3. MONITOR GASTRIC RESIDUALS AND NUTRITION-RELATED LAB VALUES 4. RD TO FOLLOW-UP 2-3 DAYS, HIGH RISK REVIEWED BY JACI HOWARD RD
[2022-09-30] MEDS: NOREPINEPHRINE 4 MG in DEXTROSE 5% 250 ML IV PRN (19:05)
--- NOTE | 2022-09-30 19:15 | NUR ---
Received report from JAKOB Manuel RESIDENCE SUPERVISOR. Initial assessment done ( PLease see flowsheet for complete Physical assessment) on Propofol @75mcg, Levophed 4mg ( Single dose)@2mcg,. on ETT to Vent= AC/PRVC Rate= 18, TV= 450, 95% FiO2 sating Between 91-94%, PEEP= 12, mendoza.
[2022-09-30 20:02] LABS: APPEARANCE,URINE CLEAR (CLEAR); BILIRUBIN,URINE NEGATIVE (NEGATIVE); BLOOD, URINE NEGATIVE (NEGATIVE); COLOR,URINE YELLOW (YELLOW); LEUKOCYTE ESTERASE ,URINE NEGATIVE (NEGATIVE); NITRITE, URINE NEGATIVE (NEGATIVE); UGLUCOSE 3+ (NEGATIVE)
--- NOTE | 2022-09-30 21:00 | NUR ---
Due medications given, tolerated well. Will continue to monitor closely.
[2022-10-01] VITALS (26 sets, daily range): BP systolic 82–122; BP diastolic 43–60
--- NOTE | 2022-10-01 | NUR ---
No cardio-respiratory distress noted at this time.Turn & reposition q2h as ordered, No pain or discomfort noted at this time, monitoring continously.
[2022-10-01] MEDS: INSULIN LISPRO SLIDING SCALE 100 UNITS/ML VIAL SUBQ PRN ×3 (00:26→17:53)
[2022-10-01] MEDS: BLOOD GLUCOSE MONITORING 1 DEV DEV FS SCH ×4 (00:29→18:17)
[2022-10-01] MEDS: ALBUTEROL SULFATE/IPRATROPIU 3 ML SOL IH SCH ×4 (01:16→19:40)
[2022-10-01] MEDS: PROPOFOL 1000 MG/100 ML PREMIX 100 ML IV PRN ×7 (01:45→20:59)
--- NOTE | 2022-10-01 02:05 | NUR ---
No pain or discomfort noted at this time. Bed in Low position, Breaks on, Head Of Bed @30degrees angle. Will continue to monitor closely.
--- NOTE | 2022-10-01 04:30 | NUR ---
Total care given, pericare done, change gown. Linen & Chaulks. Made Clean, Dry & comfortable. Tolerated well. Bed in Low position, Breaks on, Head Of Bed @30degrees angle. Will continue to monitor closely.
[2022-10-01] MEDS: CLINDAMYCIN 600MG/D5W PM 50 ML IV SCH (04:55)
[2022-10-01 05:53] LABS: HEMOGLOBIN 7.4 g/dL (12.0-16.0); MEAN CORPUSCULAR HEMOGLOBIN 31 pg (27-31); MEAN CORPUSCULAR HGB CONC 34 g/dL (33-37); MEAN CORPUSCULAR VOLUME 91.8 fL (80-94); PLATELET COUNT (AUTO) 235 K/uL (140-450); RED BLOOD CELL COUNT(AUTO) 2.39 MIL/uL (4.20-5.40); RED CELL DISTRIBUTION WIDTH 19.1 % (11.6-13.7); WHITE BLOOD COUNT (AUTO) 6.7 K/uL (4.8-10.8)
[2022-10-01 06:12] LABS: ANION GAP 12.5 (8-16); CARBON DIOXIDE 26.3 mmol/L (21-32); CREATININE 0.8 mg/dL (0.6-1.3); POTASSIUM 3.8 mmol/L (3.5-5.1)
[2022-10-01 06:27] LABS: MAGNESIUM 1.4 mg/dL (1.8-2.4); PHOSPHORUS 2.9 mg/dL (2.5-4.9)
[2022-10-01] MEDS: ECOTRIN 81 MG TABEC PO SCH (06:30)
--- NOTE | 2022-10-01 07:20 | NUR ---
Endorsed patient to JAKOB Francis PLYWOOD LAYUP LINE BACK FEEDER. All questions answered. Addendum: 10/01/22 at 1032 by Agency Marli MONTAGUE RN Wrong patient
--- NOTE | 2022-10-01 07:30 | NUR ---
PATIENT RECEIVED FROM NIGHT RN MATTY Laird PT.SEDATED PROPOFOL 75 MCG/KG/MINUTE, MORPHINE 2 MG/HR, INTUBATED ORALLY SIZE 7.5, ABOUT 24 CM.LIP, AC/PRVC 95% RATE 18, 450 MLS., +12. PT.NOT OPENING EYES, RR 21/MINUTE & HAS ERRATIC WAVE TV EVEN WITH SEDATION. TO START TUBE FEEDING WITH OGT, GLUCERNA 1.2.
--- NOTE | 2022-10-01 07:31 | NUR ---
Endorsed patient to JAKOB Francis DOWEL MAKER. All questions answered.
[2022-10-01 07:41] LABS: EOSINOPHILS % (MANUAL) 2 % (0-4); LYMPHOCYTES % (MANUAL) 2 % (20-46); MONOCYTES % (MANUAL) 4 % (5-12)
--- NOTE | 2022-10-01 08:30 | NUR ---
INFORMED DR. LABOY ABOUT OGT CONFIRMATION FOR USE. DR. LABOY OKAYED TO USE OGT FOR TUBE FEEDING. INQUIRED ABOUT PRECEDEX GTT, SINCE PT. HAS ERRATIC BREATHING/TV.
[2022-10-01] MEDS: metFORMIN 500 MG TAB PO SCH ×2 (09:30→16:32)
[2022-10-01] MEDS: MAGNESIUM OXIDE 400 MG TAB PO SCH (09:45)
[2022-10-01] MEDS: PANTOPRAZOLE 40 MG INJ VIAL IVP SCH (09:45)
[2022-10-01] MEDS: DOCUSATE SODIUM 100 MG GELCAP PO SCH ×2 (09:45→20:31)
[2022-10-01] MEDS: LEVOFLOXACIN 500 MG/D5W PREMIX 100 ML IV SCH (09:45)
[2022-10-01] MEDS: amLODIPine 5 MG TAB PO SCH (09:45)
[2022-10-01] MEDS: lisinopriL 10 MG TAB PO SCH ×2 (09:45→20:32)
[2022-10-01] MEDS: PRIMIDONE 50 MG TAB PO SCH (09:45)
[2022-10-01] MEDS: ENOXAPARIN 60 MG/0.6 ML SYR SUBQ SCH (09:45)
[2022-10-01] MEDS: SODIUM PHOS / POTASSIUM PHOS 1 PKT PDR PO SCH ×3 (09:45→16:35)
[2022-10-01] MEDS: FLUoxetine 20 MG CAP PO SCH (09:45)
[2022-10-01] MEDS: GLIMEPIRIDE 2 MG TAB PO SCH ×2 (09:45→16:34)
[2022-10-01] MEDS: ATORVASTATIN 20 MG TAB PO SCH (09:45)
[2022-10-01] MEDS: NOREPINEPHRINE 4 MG in DEXTROSE 5% 250 ML IV PRN ×3 (11:56→20:56)
[2022-10-01] MEDS: MAG SULF 2000 MG/WATER PREMIX 50 ML IV PRN (12:22)
[2022-10-01] MEDS: MEROPENEM 500 MG in NACL 0.9% 50 ML IV SCH ×2 (12:23→20:31)
--- NOTE | 2022-10-01 14:24 | NUR ---
PT CURRENTLY ON GLUCERNA 1.2 @ 35ML/HR. RECOMMEND SWITCHING TO VITAL AF 1.2 WITH THE SAME RATE AND FWF ONCE PT FINISHES THE CURRENT GLUCERNA 1.2 BOTTLE D/T GLUCERNA 1.2 ON BACKORDER. VITAL AF 1.2 PROVIDES THE SAME AMOUNT OF CALORIES WITH LOW CARB AND HIGH PROTEIN, SUITABLE FOR PTS WITH DIABETES. RECOMMEND MONITORING NUTRITION-RELATED LABS. JACI HOWARD RD
--- NOTE | 2022-10-01 16:15 | NUR ---
RT CALLED TO ASSESS PT WAS DESATING WITH ELEVATED HR 127 PT WAS PLACED ON 80% FIO2 AND WAS SATING 96%. RN GAVE REPOSITIONED PT TO SEE IF THAT HELPS PT HR. RT SUGGESTED MAYBE PAIN MEDS WILL HELP. PT RECEIVING GOOD VOLUMES AND PEAK PRESSURES ARE IN NORMAL RANGE. WILL CONTINUE TO MONITOR.
[2022-10-01] MEDS: ACETAMINOPHEN 325 MG TAB PO PRN (16:32)
[2022-10-01] MEDS: NACL 0.9% 1,000 ML IV SCH (17:40)
--- NOTE | 2022-10-01 19:10 | NUR ---
Received report from JAKOB Francis DEDICATED OWNER OPERATOR. Initial assessment done ( PLease see flowsheet for complete Physical assessment) on Propofol @85mcg, Levophed Drip 4mg/250ml D5W( Single dose)running @11mcg, Morphine Drip @2mg/hr, on ETT to Vent= AC/PRVC Rate= 18, TV= 450, 80% FiO2 sating Between 97-100%, PEEP= 12, Blanc to Gila.
--- NOTE | 2022-10-01 19:30 | NUR ---
PATIENT HANDED OVER TO NIGHT RN MATTY Laird PT. INTUBATED ORAL ETT SIZE 7.5, AC/PRVC 80% O2, ERRATIC TIDAL VOLUME, NOTED BY DR. NUNEZ IN AM, PT. IS TO BE KEPT ON PROPOFOL RE-ORDERED DURING ROUNDS, MORPHINE GTT, NOTED THAT THE RASS IS -4, PT. IS NOT WAKING UP, NOT MOVING, BUT RR GOES UP AND HR GOES UP. PENDING CT HEAD, UNSTABLE. INFORMED DR. NUNEZ, FOR BLOOD TRANSFUSION 1 UNIT EVEN WITH 7.4, WITH SEPSIS, LAB. CALLED SEVERAL TIMES FOR CONFIRMATION OF TRANSFUSION. MAGNESIUM 2 GRAMS IV GIVEN FOR Mg 1.4, GIVEN 1ST DOSE OF MEROPENEM, SPUTUM CULTURE DONE BY RT, NO PRECEDEX GTT ONLY PROPOFOL PER DR. NUNEZ. CXR DONE. FNS ILYNE SAID TO SUBSTITUTE GLUCERNA 1.2 WITH VITAL AF 1.2 TOMORROW ONCE FINISHED, INFORMED DR. LABOY. RESTRAINTS REMOVED, PT. DOES NOT MOVE. HAS BEEN AT THE BEDSIDE THE WHOLE TIME, INFORMED OF UPDATE, HE CALLED DAUGHTER KASSI TO TALK TO DR. NUNEZ. DR. VALENZUELA IS ON VACATION, TO INFORM DR. MEDINA WHO COVERING ABOUT THE ANTIBIOTIC MERREM WAS STARTED.
[2022-10-01] MEDS: MORPHINE SULFATE 50 MG in NACL 0.9% 45 ML IV PRN (20:57)
--- NOTE | 2022-10-01 21:00 | NUR ---
Due medications given, tolerated well. Will continue to monitor closely for any possible adverse reactions.
--- NOTE | 2022-10-01 23:15 | NUR ---
Started Blood Transfusion of 1 unit PRVC, initial VS taken Pre-transfusion. T= 97.9, HR= 119, RR= 18 , BP= 98/56 mmHg, PS= 0/10
[2022-10-02] VITALS (25 sets, daily range): BP systolic 85–129; BP diastolic 42–66
--- NOTE | 2022-10-02 | NUR ---
No complaint of pain or discomfort noted at this time, Turn & reposition q2h as ordered. BS= 221mg/dl, covered with 4 units Humalog SQ as per Sliding Scale Coverage ordered.
[2022-10-02] MEDS: INSULIN LISPRO SLIDING SCALE 100 UNITS/ML VIAL SUBQ PRN ×4 (00:22→17:40)
[2022-10-02] MEDS: BLOOD GLUCOSE MONITORING 1 DEV DEV FS SCH ×4 (00:23→17:37)
--- NOTE | 2022-10-02 00:30 | NUR ---
No transfusion reaction noted Still at this time. But will continue to Monitor for it.
[2022-10-02] MEDS: ALBUTEROL SULFATE/IPRATROPIU 3 ML SOL IH SCH ×3 (01:59→19:50)
[2022-10-02] MEDS ORDERED: NOREPINEPHRINE 4 MG/4 ML VIAL IV ONE ×2 (02:40→22:59)
--- NOTE | 2022-10-02 02:45 | NUR ---
Blood Transfusion done, completed the whole 1unit Bag of PRBC (300ml) NO Transfusion Reaction noted but will still continuosly monitor.
[2022-10-02] MEDS: NOREPINEPHRINE 8 MG in DEXTROSE 5% 250 ML IV PRN ×2 (02:50→14:16)
[2022-10-02] MEDS: PROPOFOL 1000 MG/100 ML PREMIX 100 ML IV PRN ×6 (04:15→21:28)
--- NOTE | 2022-10-02 05:15 | NUR ---
Total care given, pericare done, change gown. Linen & Chaulks. Made Clean, Dry & comfortable. Tolerated well. Turn & Reposition. Bed in Low position, Breaks on, Head Of Bed @30degrees angle. Will continue to monitor closely.
[2022-10-02] MEDS: MEROPENEM 500 MG in NACL 0.9% 50 ML IV SCH (05:38)
[2022-10-02 05:43] LABS: HEMATOCRIT 29.9 % (36-48); MEAN CORPUSCULAR HEMOGLOBIN 31 pg (27-31); MEAN CORPUSCULAR HGB CONC 33 g/dL (33-37); PLATELET COUNT (AUTO) 189 K/uL (140-450); RED BLOOD CELL COUNT(AUTO) 3.25 MIL/uL (4.20-5.40); RED CELL DISTRIBUTION WIDTH 18.3 % (11.6-13.7); WHITE BLOOD COUNT (AUTO) 4.3 K/uL (4.8-10.8)
[2022-10-02 05:49] LABS: ANION GAP 11.5 (8-16); CARBON DIOXIDE 27.1 mmol/L (21-32); CREATININE 0.8 mg/dL (0.6-1.3); POTASSIUM 3.6 mmol/L (3.5-5.1)
[2022-10-02 05:51] LABS: MAGNESIUM 1.9 mg/dL (1.8-2.4); PHOSPHORUS 3.4 mg/dL (2.5-4.9)
[2022-10-02] MEDS: ECOTRIN 81 MG TABEC PO SCH (06:42)
[2022-10-02 07:15] LABS: BASOPHILS % (MANUAL) 0 % (0-2); EOSINOPHILS % (MANUAL) 5 % (0-4); LYMPHOCYTES % (MANUAL) 4 % (20-46); MONOCYTES % (MANUAL) 3 % (5-12)
--- NOTE | 2022-10-02 07:28 | NUR ---
Report given to JAKOB Centeno RN, All questions answered. On Levophed Drip @14mcg/min, Propofol @90mcg/kg/min, Morphine Drip @3mg/hr, & NS @50ml/hr, VS stable .
--- NOTE | 2022-10-02 07:40 | NUR ---
Received pt sedated, ETT to vent settings AC/PRVC TV 450 rate 18 PEEP 10 FiO2@70%. Sinus rhythm on monitor. Suellen cath on right upper chest. OG-tube intact and infusing Glucerna 1.2 @10ml/hr with FWF @100ml Q8hr. Abd soft and nondistended. Blanc catheter intact and draining to BSD. PICC line on left upper arm intact and patent infusing levophed @14mcg/min, Propofol @80mcg/kg/min, and morphine @3mg/hr. Peripheral IV on right forearm intact and patent infusing NS@50ml/hr. Safety precautions in place.
[2022-10-02] MEDS: PRIMIDONE 50 MG TAB PO SCH (08:56)
[2022-10-02] MEDS: ATORVASTATIN 20 MG TAB PO SCH (08:57)
[2022-10-02] MEDS: MAGNESIUM OXIDE 400 MG TAB PO SCH (08:57)
[2022-10-02] MEDS: DOCUSATE SODIUM 100 MG GELCAP PO SCH (08:57)
[2022-10-02] MEDS: FLUoxetine 20 MG CAP PO SCH (08:57)
[2022-10-02] MEDS: PANTOPRAZOLE 40 MG INJ VIAL IVP SCH (08:58)
[2022-10-02] MEDS: GLIMEPIRIDE 2 MG TAB PO SCH ×2 (08:58→17:30)
[2022-10-02] MEDS: metFORMIN 500 MG TAB PO SCH ×2 (08:58→17:30)
[2022-10-02] MEDS: ENOXAPARIN 40 MG/0.4 ML SYR SUBQ SCH (08:59)
[2022-10-02] MEDS: amLODIPine 5 MG TAB PO SCH (09:00)
[2022-10-02] MEDS: lisinopriL 10 MG TAB PO SCH ×2 (09:00→20:43)
--- NOTE | 2022-10-02 09:05 | NUR ---
Dr. Navas at bedside examining patient. New order to push down ETT 1cm and adjust vent settings. RT Cruz made aware and at bedside. For CXR tomorrow.
--- NOTE | 2022-10-02 09:14 | NUR ---
DR NUNEZ AT BEDSIDE GAVE RT VERBAL ORDER TO ADVANCE THE ETT 1CM. PT IS NOW 25CM @TEETH. DR ALSO REQUESTED TO TITRATE FIO2 TOLERATED AND TITRATE PEEP FROM +10 TO +8. PT HR 97 SPO2 91%. WILL CONTINUE TO MONITOR.
[2022-10-02] MEDS: DOCUSATE 100 MG/10 ML UDC GT SCH ×2 (10:39→20:43)
[2022-10-02] MEDS: MEROPENEM 500 MG in NACL 0.9% 100 ML IV SCH ×2 (12:22→20:43)
--- NOTE | 2022-10-02 14:00 | NUR ---
Pt resting in bed comfortable. No signs of respiratory distress.
--- NOTE | 2022-10-02 18:30 | NUR ---
Mikael Dunne at bedside. All questions answered.
[2022-10-02] MEDS: MORPHINE SULFATE 50 MG in NACL 0.9% 45 ML IV PRN (19:01)
--- NOTE | 2022-10-02 19:05 | NUR ---
Report Given by JAKOB Centeno ELECTRIC CLOCK MECHANIC for continuity of care. Initial assessment done ( Please see Flowsheet for complete Physical assessment)
--- NOTE | 2022-10-02 19:17 | NUR ---
Endorsed to shift leader nurse June for continuity of care. All questions answered.
--- NOTE | 2022-10-02 21:00 | NUR ---
Due meds given, tolerated well. Will monitor for any possible Adverse reaction.
[2022-10-03] VITALS (31 sets, daily range): BP systolic 69–126; BP diastolic 38–80
--- NOTE | 2022-10-03 | NUR ---
Turn & reposition q2h as ordered, No pain or discomfort noted at this time, Still sedated with Propofol @ 70mcg/kg/min, Tolerating well.
[2022-10-03] MEDS: NOREPINEPHRINE 8 MG in DEXTROSE 5% 250 ML IV PRN ×3 (00:21→11:30)
[2022-10-03] MEDS: INSULIN LISPRO SLIDING SCALE 100 UNITS/ML VIAL SUBQ PRN ×3 (00:40→17:34)
[2022-10-03] MEDS: BLOOD GLUCOSE MONITORING 1 DEV DEV FS SCH ×5 (00:47→23:49)
[2022-10-03] MEDS: PROPOFOL 1000 MG/100 ML PREMIX 100 ML IV PRN ×4 (00:55→11:30)
[2022-10-03] MEDS: NACL 0.9% 1,000 ML IV SCH ×2 (01:13→08:41)
[2022-10-03] MEDS: ALBUTEROL SULFATE/IPRATROPIU 3 ML SOL IH SCH ×2 (01:18→19:10)
--- NOTE | 2022-10-03 02:30 | NUR ---
Oral care rendered, with Chlorhexidine Oral rinse & oral debriding agent. Tolerated well. No cardio-respiratory distress noted at this time. Bed in Low position, Brakes on, Head of Bed in 30 degrees angle. Will continue to monitor patient.
[2022-10-03] MEDS: MEROPENEM 500 MG in NACL 0.9% 100 ML IV SCH ×3 (05:12→20:33)
--- NOTE | 2022-10-03 05:15 | NUR ---
Total care given, Pericare rendered, tolerated well. Change gown, linen, & Chaulks, Made Clean, Dry & comfortable. No pain or discomfort noted during Care.
--- NOTE | 2022-10-03 06:20 | NUR ---
BS= 114mg/dl, No Coverage needed.
[2022-10-03] MEDS: ECOTRIN 81 MG TABEC PO SCH (06:21)
[2022-10-03] MEDS ORDERED: NOREPINEPHRINE 4 MG/4 ML VIAL IV ONE ×2 (07:07)
--- NOTE | 2022-10-03 07:41 | NUR ---
Report given to JAKOB Manuel NEWS EDITOR, All questions answered.
[2022-10-03 07:42] LABS: EOSINOPHILS # (AUTO) 0.1 K/uL (0-0.4); HEMATOCRIT 32.2 % (36-48); HEMOGLOBIN 10.6 g/dL (12.0-16.0); LYMPHOCYTES # (AUTO) 0.1 K/uL (2.5-16.5); LYMPHOCYTES % (AUTO) 1.6 % (20.5-51.1); MEAN CORPUSCULAR HEMOGLOBIN 31 pg (27-31); MEAN CORPUSCULAR HGB CONC 33 g/dL (33-37); MEAN CORPUSCULAR VOLUME 92.5 fL (80-94); MONOCYTES # (AUTO) 0.2 K/uL (0.8-1.0); MONOCYTES % (AUTO) 2.6 % (1.7-9.3); NEUTROPHILS # (AUTO) 8.5 K/uL (1.8-7.7); NEUTROPHILS % (AUTO) 94.8 % (42.2-75.2); PLATELET COUNT (AUTO) 155 K/uL (140-450); RED BLOOD CELL COUNT(AUTO) 3.48 MIL/uL (4.20-5.40); RED CELL DISTRIBUTION WIDTH 18.7 % (11.6-13.7)
[2022-10-03 07:56] LABS: ANION GAP 13.7 (8-16); CARBON DIOXIDE 23.8 mmol/L (21-32); CREATININE 1.6 mg/dL (0.6-1.3); POTASSIUM 3.5 mmol/L (3.5-5.1)
[2022-10-03] MEDS: metFORMIN 500 MG TAB PO SCH ×2 (08:00→17:38)
--- NOTE | 2022-10-03 08:18 | NUR ---
Dr. Hernandez rounding on pt. New orders made for consult with nephrology
[2022-10-03] MEDS: DOCUSATE 100 MG/10 ML UDC GT SCH ×2 (08:38→20:33)
[2022-10-03] MEDS: PANTOPRAZOLE 40 MG INJ VIAL IVP SCH (08:38)
[2022-10-03] MEDS: ENOXAPARIN 40 MG/0.4 ML SYR SUBQ SCH (08:38)
[2022-10-03] MEDS: GLIMEPIRIDE 2 MG TAB PO SCH ×2 (08:39→17:38)
[2022-10-03] MEDS: ATORVASTATIN 20 MG TAB PO SCH (08:39)
[2022-10-03] MEDS: lisinopriL 10 MG TAB PO SCH ×2 (08:40→20:35)
[2022-10-03] MEDS: MAGNESIUM OXIDE 400 MG TAB PO SCH (08:40)
[2022-10-03] MEDS: amLODIPine 5 MG TAB PO SCH (08:41)
[2022-10-03] MEDS: PRIMIDONE 50 MG TAB PO SCH (08:42)
[2022-10-03] MEDS: FLUoxetine 20 MG CAP PO SCH (08:43)
--- NOTE | 2022-10-03 08:44 | NUR ---
PT. WITH LOW KIMMY SCALE AT MODERATE TO HIGH RISK, CONTINUE TO FOLLOW PRESSURE INJURY PREVENTION INTERVENTIONS. -POSITIONING: TURN AND REPOSITION PATIENT Q 2H OR SOONER USE PILLOWS TO KEEP BONY PROMINENCES FROM DIRECT CONTACT WITH SURFACES USE REPOSITIONING WEDGES TO PROVIDE 30-DEGREE ANGLE FOR SIDE LYING POSITIONS OFFLOADING OR FOAM DRESSING TO ALL TUBING TO PREVENT MEDICAL DEVICES RELATED PRESSURE INJURY -RE-EVALUATING AND MANAGING INCONTINENCE MONITOR SKIN CONDITION DURING POSITION CHANGE DO NOT MASSAGE REDNESS, BONY PROMINENCES FREQUENT CHRISTOPHER-CARE AND PROVIDE BARRIER CREAMS PRN IF SOILING MOISTURE CONTROL BY OFFER BED GRANT/URINAL /ABSORBENT PAD TO WICK AND HOLD MOISTURE KEEP SKIN DRY AND PROTECT FROM FRICTION -MANAGE FRICTION/SHEAR/MOBILITY KEEP HOB AT THE LOWEST LEVEL OF ELEVATION NO MORE THAN 30 DEGREE UNLESS OTHERWISE CONTRAINDICATED USE LIFT SHEET OR TRANSFER DEVICE TO MOVE PATIENT AND PREVENT LATERAL SHEER. PROTECT HEELS, ELBOWS BONY PROMINENCES WITH SKIN BERRIES OR FOAM DRESSING IF EXPOSED TO FRICTION OFFLOAD BILATERAL HEELS BY PLACING PILLOWS UNDER CALVES AT ALL TIMES, UNLESS OTHERWISE CONTRAINDICATED -PRESSURE REDISTRIBUTION SURFACE THERAPY LEEANNA ISOFLEX MATTRESS -NUTRITION: PLEASE FOLLOW RD RECOMMENDATIONS AND OFFER NUTRITION SUPPLEMENTS IF ORDERED. PLEASE CONTACT WOUND CARE NURSE FOR ANY QUESTION AND CHANGE OF WOUND CONDITION.
--- NOTE | 2022-10-03 12:44 | NUR ---
Page out to Dr. Hernandez for orders, waiting for call back.
--- NOTE | 2022-10-03 13:23 | NUR ---
Page out to Dr. Concepcion, spoke with exchange.
--- NOTE | 2022-10-03 13:36 | NUR ---
Dr. Concepcion return call, new orders made.
[2022-10-03] MEDS ORDERED: ALBUMIN HUMAN 5 % 250 ML IV SCH (13:38)
[2022-10-03] MEDS ORDERED: HYDROCORTISONE NA SUCC 100 MG/2 ML VIAL IV SCH (13:41)
[2022-10-03] MEDS: PHENYLEPHRINE 40 MG in NACL 0.9% 250 ML IV PRN ×2 (14:22→19:45)
[2022-10-03] MEDS: NOREPINEPHRINE 16 MG in DEXTROSE 5% 250 ML IV PRN ×2 (14:32→23:49)
--- NOTE | 2022-10-03 15:00 | NUR ---
Noted high residual greater than 500 ml. Tube feeding placed on hold.
--- NOTE | 2022-10-03 15:01 | NUR ---
10/03/22 RD FOLLOW UP COMPLETED PLEASE REFER TO NUTRITION ASSESSMENT UNDER CARE ACTIVITY FOR ESTIMATED NUTRITIONAL NEEDS. 1. CONTINUE VITAL AF 1.2 @ 35ML/HR X 24 HRS WITH PROSOURCE BID, FWF 100 ML Q8H TOLERATED -WITH PROSOURCE BID AND PROPOFOL @ 33ML/HR, PT WILL RECEIVE 1999KCAL AND 80GM PROTEIN, MEETING 100% OF ESTIMATED NUTRITIONAL NEEDS 2. IF PT OFF PROPOFOL, RECOMMEND INCREASING VITAL AF 1.2 TO 60ML/HR WITH FWF 50ML Q8H TOLERATED -WILL PROVIDE 1728KCAL AND 86GM PROTEIN, MEETING 100% OF ESTIMATED NUTRITIONAL NEEDS 3. MONITOR GI SYMPTOMS 4. RD TO FOLLOW-UP 3-5 DAYS, MODERATE RISK JACI HOWARD RD
--- NOTE | 2022-10-03 15:50 | NUR ---
Pt scheduled for CT but currently unstable to complete test. Dr. Jamey zavala.
[2022-10-03] MEDS: VASOPRESSIN 20 UNITS in NACL 0.9% 250 ML IV SCH (17:09)
--- NOTE | 2022-10-03 17:27 | NUR ---
Updates given to pt's daughter Ceci.
[2022-10-03] MEDS: HYDROCORTISONE NA SUCC 100 MG/2 ML VIAL IV SCH ×2 (17:38→23:49)
--- NOTE | 2022-10-03 19:30 | NUR ---
ASSUMED CARE OF PT.INITIAL ASSESSMENT COMPLETED.PT LETHARGIC.ST NOTED ON MONITOR.ORALLY INTUBATED AC PRVC MODE FIO2 100% TV450 RATE 18 PEEP 10.W/AFUA PICC LINE, GOOD BLOOD RETURN TO BOTH PORTS INFUSING ORDERED IVF AND VASOPRESSORS (LEVOPHED 16 MG IN 250ML D5W AT 30MCG/MIN;MELISSA SYNEPHRINE 40MG IN 250ML NS AND VASOPRESSIN 20 UNITS IN 250ML NS AT 0.01 UNIT/MIN) AND MORPHINE DRIP AT 3MG/HR.W/ROHINI CATH TO RT CHEST INTACT,DRY DRESSING.W/OGT IN PLACE.400ML GREENISH RESIDUALS/TF ON HOLD FOR NOW.W/BEARDEN CATHETER TO BSD SCANTY LIGHT LATHA URINE NOTED.BUE W/NON PITTING EDEMA.SKIN INTACT.BED IN LOW POSITION.WILL CONTINUE TO CLOSELY MONITOR PT.
--- NOTE | 2022-10-03 20:00 | NUR ---
ANATOLY PEREZ USING VAP KIT RENDERED.PT ON DAILY PROTONIX FOR GI PROPHYLAXIS AND LOVENOX FOR DVT PROPHYLAXIS.REPOSITIONED.TEMP 100, COOLING MEASURES IN PLACE. DR MEDINA AND DR LIM IN THE UNIT.BOTH MD UPDATED ON PTS PRESENT CONDITION. QUESTIONS ANSWERED
[2022-10-03] MEDS ORDERED: DOXYCYCLINE 100 MG VIAL IV ONE (20:56)
[2022-10-03] MEDS: DOXYCYCLINE 100 MG in DEXTROSE 5% 100 ML IV SCH (21:21)
--- NOTE | 2022-10-03 22:32 | NUR ---
PTS DAUGHTER KASSI AT BEDSIDE,UPDATED ON PTS PRESENT CONDITION.QUESTIONS ANSWERED
[2022-10-04] VITALS (21 sets, daily range): BP systolic 90–129; BP diastolic 37–75
--- NOTE | 2022-10-04 00:04 | NUR ---
RESIDUALS CHECKED/OGT 420 ML NOTED.FEEDING STILL ON HOLD FOR NOW. ORAL CARE USING VAP KIT RENDERED.REPOSITIONED.FLACC 0. BS 198, INSULIN COVERAGE GIVEN ORDERED
[2022-10-04] MEDS: ALBUTEROL SULFATE/IPRATROPIU 3 ML SOL IH SCH ×2 (01:08→07:12)
[2022-10-04] MEDS ORDERED: PHENYLEPHRINE 10 MG/ML VIAL ONE (01:16)
[2022-10-04] MEDS: PHENYLEPHRINE 40 MG in NACL 0.9% 250 ML IV PRN ×2 (01:20→08:38)
[2022-10-04] MEDS: NACL 0.9% 1,000 ML IV SCH (01:28)
--- NOTE | 2022-10-04 02:00 | NUR ---
FAMILY AT BEDSIDE, PTS CONDITION REMAINS UNCHANGED.STILL ON LEVOPHED,MELISSA SYNEPHRINE AND VASOPRESSIN DRIPS.MORPHINE DRIP STILL AT 3MG/HR.FIO2 ON THE VENT STILL AY 100%.FLACC 0.REPOSITIONED
--- NOTE | 2022-10-04 04:48 | NUR ---
MORNING CARE DONE.NO BM NOTED AT THIS TIME.OGT STILL CLAMPED FOR HIGH RESIDUALS.AFEBRILE.REPOSITIONED
[2022-10-04] MEDS ORDERED: MEROPENEM 500 MG in NACL 0.9% 50 ML IV SCH ×2 (05:00→21:00)
[2022-10-04 05:45] LABS: BASOPHILS % (AUTO) 0.2 % (0.0-2.0); EOSINOPHILS % (AUTO) 0.1 % (0.0-4.0); HEMATOCRIT 29.8 % (36-48); HEMOGLOBIN 9.7 g/dL (12.0-16.0); LYMPHOCYTES # (AUTO) 0.1 K/uL (2.5-16.5); LYMPHOCYTES % (AUTO) 0.8 % (20.5-51.1); MEAN CORPUSCULAR HEMOGLOBIN 31 pg (27-31); MEAN CORPUSCULAR HGB CONC 33 g/dL (33-37); MEAN CORPUSCULAR VOLUME 93.8 fL (80-94); MONOCYTES # (AUTO) 0.4 K/uL (0.8-1.0); MONOCYTES % (AUTO) 2.9 % (1.7-9.3); NEUTROPHILS # (AUTO) 13.2 K/uL (1.8-7.7); PLATELET COUNT (AUTO) 127 K/uL (140-450); RED BLOOD CELL COUNT(AUTO) 3.17 MIL/uL (4.20-5.40); WHITE BLOOD COUNT (AUTO) 13.8 K/uL (4.8-10.8)
--- NOTE | 2022-10-04 06:00 | NUR ---
BS CHECKED 158, INSULIN COVERAGE ADMINISTERED.FLACC 0
[2022-10-04] MEDS: ECOTRIN 81 MG TABEC PO SCH (06:13)
[2022-10-04] MEDS: HYDROCORTISONE NA SUCC 100 MG/2 ML VIAL IV SCH ×3 (06:13→17:21)
[2022-10-04] MEDS: BLOOD GLUCOSE MONITORING 1 DEV DEV FS SCH ×3 (06:13→17:21)
[2022-10-04] MEDS: INSULIN LISPRO SLIDING SCALE 100 UNITS/ML VIAL SUBQ PRN ×2 (06:19→12:07)
[2022-10-04 06:35] LABS: ALBUMIN 1.4 g/dL (3.4-5.0); ANION GAP 21.5 (8-16); CARBON DIOXIDE 17.7 mmol/L (21-32); CREATININE 3.3 mg/dL (0.6-1.3); POTASSIUM 5.2 mmol/L (3.5-5.1); TOTAL BILIRUBIN 0.5 mg/dL (0.0-1.0)
--- NOTE | 2022-10-04 07:30 | NUR ---
Pt intubated on ventilator, no signs of pain noted. On levophed, neosynephrine, morphine, and vasopressin drips. Pt noted with residual over 500 ml, tube feeding on hold. Blanc with little to no output dark urine. Pt's at bedside.
[2022-10-04] MEDS: GLIMEPIRIDE 2 MG TAB PO SCH ×2 (08:33→17:00)
[2022-10-04] MEDS: MORPHINE SULFATE 50 MG in NACL 0.9% 45 ML IV PRN (08:37)
[2022-10-04] MEDS: DOCUSATE 100 MG/10 ML UDC GT SCH (08:45)
[2022-10-04] MEDS: PANTOPRAZOLE 40 MG INJ VIAL IVP SCH (08:46)
[2022-10-04] MEDS: ENOXAPARIN 40 MG/0.4 ML SYR SUBQ SCH (08:46)
[2022-10-04] MEDS: ATORVASTATIN 20 MG TAB PO SCH (08:47)
[2022-10-04] MEDS: DOXYCYCLINE 100 MG in DEXTROSE 5% 100 ML IV SCH (08:47)
[2022-10-04] MEDS: amLODIPine 5 MG TAB PO SCH (08:47)
[2022-10-04] MEDS: MAGNESIUM OXIDE 400 MG TAB PO SCH (08:47)
[2022-10-04] MEDS: FLUoxetine 20 MG CAP PO SCH (08:49)
[2022-10-04] MEDS: PRIMIDONE 50 MG TAB PO SCH (08:49)
[2022-10-04] MEDS: NOREPINEPHRINE 16 MG in DEXTROSE 5% 250 ML IV PRN (11:24)
[2022-10-04] MEDS: VASOPRESSIN 20 UNITS in NACL 0.9% 250 ML IV SCH (12:30)
--- NOTE | 2022-10-04 12:52 | NUR ---
Dr. Aguilar rounding at bedside, speaking with pt's and daughter.
--- NOTE | 2022-10-04 13:28 | NUR ---
PT SPO2 80%, FIO2 INCREASED TO 100% AND PEEP INCREASED TO [id number] NURSE MADE AWARE. WILL CONTINUE TO MONITOR.
--- NOTE | 2022-10-04 13:39 | NUR ---
Desaturation noted SpO2 40-50% on FiO2 100%. Dr. Concepcion made aware, new orders made for stat CXR. Attempt to taper levophed drip
[2022-10-04] MEDS ORDERED: ALBUTEROL SULFATE/IPRATROPIU 3 ML SOL IH PRN (13:55)
--- NOTE | 2022-10-04 14:30 | NUR ---
AWARE OF PT SPO2 40%. MULTIPLE MODES OF VENTILATION ATTEMPTED TO OXYGENATE PT WITHOUT SUCCESS. NURSE MADE AWARE.
--- NOTE | 2022-10-04 14:35 | NUR ---
PT ON APRV DUE TO LOW SPO2. PT NOT TOLERATING WELL AT THIS TIME. AND NO CHANGE IN SPO2 AT THIS TIME. NURSE AWARE.
--- NOTE | 2022-10-04 15:16 | NUR ---
BEDSIDE EVALUATING PT. EXPLAINED TO HIGHWAY DESIGN ENGINEER ATTEMPTS WITH SEVERAL DIFFERENT MODES OF VENTILATION UNSUCCESSFUL TO OXYGENATE PT. ALSO UPDATED PHYSICIAN ON CXR RESULTS. NEW VENT SETTINGS Pinsp 20, R18, PEEP 12 AND FIO2 100%. CODE STATUS DISCUSSED WITH FAMILY BY .
--- NOTE | 2022-10-04 15:16 | NUR ---
Dr. Concepcion at bedside with pt and family discussing code status, family states to "let her go peacefully" but still continue pressors until heart stops.
[2022-10-04] MEDS ORDERED: SODIUM BICARBONATE 8.4% 150 MEQ in DEXTROSE 5% 1,000 ML IV SCH (15:30)
--- NOTE | 2022-10-04 15:56 | NUR ---
Pt's HR 88 noted on monitor, with no saturation. Doppler check for pulse, femoral pulse present witnessed by second RN.
--- NOTE | 2022-10-04 17:32 | NUR ---
Patient Pt with ETT to vent, asystole on monitor, no pulse on doppler. ER Dr. Olmos at bedside confirming asystole and expiry. Pt's family at bedside and aware.
--- NOTE | 2022-10-04 17:40 | NUR ---
Record of form signed by pt's Yumiko. Accepting mortuary [place].
--- NOTE | 2022-10-04 17:52 | NUR ---
[facility] notified of pt's expiration. Case #[id number]
--- NOTE | 2022-10-04 18:03 | NUR ---
Attending Dr. Pan and consulting physicians notified of pt's expiration
--- NOTE | 2022-10-04 18:25 | NUR ---
Pt's body released by [employer] Maciel Neil: case # [id number]
--- NOTE | 2022-10-04 21:55 | NUR ---
BODY PICKED UP BY [facility].SECURITY AT BEDSIDE. PHONE CALL TO PTS DAUGHTER KASSI TO INFORM OF THE CONSUMER STUDIES PROFESSOR,NO ANSWER
== END 2022-10-04 21:55 | DRG 870 ==
LOC: MED 10:13 → MTU 13:44 → MIC 16:14
PROC: 0BH17EZ Insertion of Endotracheal Airway into Trachea, Via Natural or Artificial Opening (ICD-10-PCS; 2022-09-29)
PROC: 5A1935Z Respiratory Ventilation, Less than 24 Consecutive Hours (ICD-10-PCS; 2022-09-29)
PROC: 5A1955Z Respiratory Ventilation, Greater than 96 Consecutive Hours (ICD-10-PCS; principal; 2022-09-30)
PROC: 02HV33Z Insertion of Infusion Device into Superior Vena Cava, Percutaneous Approach (ICD-10-PCS; 2022-09-30)
PROC: B548ZZA Ultrasonography of Superior Vena Cava, Guidance (ICD-10-PCS; 2022-09-30)
PROC: 30233N1 Transfusion of Nonautologous Red Blood Cells into Peripheral Vein, Percutaneous Approach (ICD-10-PCS; 2022-09-30)
DX: A41.9 Sepsis, unspecified organism (principal); J18.9 Pneumonia, unspecified organism; E43 Unspecified severe protein-calorie malnutrition; J96.01 Acute respiratory failure with hypoxia; R65.21 Severe sepsis with septic shock; J90 Pleural effusion, not elsewhere classified; N17.9 Acute kidney failure, unspecified; C34.90 Malignant neoplasm of unspecified part of unspecified bronchus or lung; I10 Essential (primary) hypertension; E11.9 Type 2 diabetes mellitus without complications; Z20.822 Contact with and (suspected) exposure to COVID-19; D63.8 Anemia in other chronic diseases classified elsewhere; F41.9 Anxiety disorder, unspecified; I25.10 Atherosclerotic heart disease of native coronary artery without angina pectoris; E78.5 Hyperlipidemia, unspecified; F32.9 Major depressive disorder, single episode, unspecified; K59.00 Constipation, unspecified; G47.00 Insomnia, unspecified; G90.9 Disorder of the autonomic nervous system, unspecified; Z68.23 Body mass index [BMI] 23.0-23.9, adult; Z88.0 Allergy status to penicillin; I46.9 Cardiac arrest, cause unspecified
CPT/HCPCS: 31500; 36415; 36600; 70450; 71045; 71260; 80048; 80053; 81003; 82140; 82150; 82803; 82948; 83036; 83605; 83690; 83735; 83880; 84100; 84439; 84443; 84484; 85025; 85610; 85730; 86886; 86900; 86901; 86920; 87040; 87070; 87081; 87086; 87205; 87635-QW; 93005; 93880; 94002; 94003; 94640; 96365; 97116; 97163-GP; 99291; C9113; J1650; J1720; J1956; J2185; J2270; J2370; J2405; J2704; J3475; J3480; J3490; J7030; J7060; J8597; P9016; P9041; Q0092; Q9967